=== PATIENT | male | born 1975 | race American Indian/Alaskan Native ===

== ENCOUNTER 2021-03-11 19:59 | Emergency (ER) | payer MEDICARE ==
--- NOTE | 2021-03-11 21:27 | Emergency Department Report ---
HPI - General Chief Complaint: Psych Time Seen by Provider: 03/11/21 21:14 - HPI HPI: 45-year-old -Portuguese male presents to the emergency department for a mental health evaluation. The patient says that he has a history of depression and schizophrenia. He says he is compliant with psychiatric medications but cannot remember the name of them and they are just given to him by people at his retirement. He complains of some nonspecific auditory and visual hallucinations. He says that they are random voices that he hears but he cannot make out what they are saying. He also complains of nonspecific suicidal ideations anything going on since this morning. He has a past medical history of hypertension. ED Past Medical Hx - Past Medical History Previous Medical History?: No - Surgical History Past Surgical History?: No - Social History Smoking Status: Current Every Day Smoker - Medications Home Medications: Home Medications Medication Instructions Recorded Confirmed Last Taken Type No Known Home Medications [No 03/11/21 03/11/21 Unknown History Reported Home Medications] ED Review of Systems ROS: Stated complaint: MH Other details as noted in HPI Comment: All other systems reviewed and negative Constitutional: denies: chills, fever Eyes: denies: eye pain, vision change ENT: denies: ear pain, throat pain Respiratory: denies: cough, shortness of breath Cardiovascular: denies: chest pain, palpitations Gastrointestinal: denies: abdominal pain, vomiting Genitourinary: denies: dysuria, discharge Musculoskeletal: denies: back pain, arthralgia Neurological: denies: headache, weakness Psychiatric: auditory hallucinations, visual hallucinations, suicidal thoughts. denies: homicidal thoughts Physical Exam - Physical Exam Vital Signs: Vital Signs 03/11/21 03/11/21 20:59 21:17 Temperature 98.5 F 98.7 F Pulse Rate 88 88 Respiratory 17 18 Rate Blood Pressure 114/63 120/88 [Right] O2 Sat by Pulse 99 97 Oximetry Physical Exam: GENERAL: The patient is well-developed well-nourished. HENT: Normocephalic. Atraumatic. Patient has moist mucous membranes. EYES: Extraocular motions are intact. NECK: Supple. Trachea is midline. CHEST/LUNGS: Clear to auscultation. There is no respiratory distress noted. HEART/CARDIOVASCULAR: Regular. There is no tachycardia. There is no murmur. ABDOMEN: Abdomen is soft, nontender. Patient has normal bowel sounds. SKIN: Skin is warm and dry. NEURO: The patient is awake, alert, cooperative. The patient has no focal neurologic deficits. Normal speech. MUSCULOSKELETAL: There is no tenderness or deformity. ED Course Vital Signs 03/11/21 03/11/21 20:59 21:17 Temperature 98.5 F 98.7 F Pulse Rate 88 88 Respiratory 17 18 Rate Blood Pressure 114/63 120/88 [Right] O2 Sat by Pulse 99 97 Oximetry ED Medical Decision Making - Lab Data Result diagrams: 03/11/21 21:31 03/11/21 21:31 Lab Results 03/11/21 03/11/21 03/11/21 Range/Units 21:31 21:31 21:31 WBC 5.0 (4.5-11.0) K/mm3 RBC 4.67 (3.65-5.03) M/mm3 Hgb 14.1 (11.8-15.2) gm/dl Hct 42.5 (35.5-45.6) % MCV 91 (84-94) fl MCH 30 (28-32) pg MCHC 33 (32-34) % RDW 15.3 H (13.2-15.2) % Plt Count 200 (140-440) K/mm3 Lymph % (Auto) 23.9 (13.4-35.0) % [place] % (Auto) 9.9 H (0.0-7.3) % Eos % (Auto) 2.0 (0.0-4.3) % Baso % (Auto) 0.6 (0.0-1.8) % Lymph # (Auto) 1.2 (1.2-5.4) K/mm3 [place] # (Auto) 0.5 (0.0-0.8) K/mm3 Eos # (Auto) 0.1 (0.0-0.4) K/mm3 Baso # (Auto) 0.0 (0.0-0.1) K/mm3 Seg Neutrophils % 63.6 (40.0-70.0) % Seg Neutrophils # 3.2 (1.8-7.7) K/mm3 Sodium 142 (137-145) mmol/L Potassium 3.9 (3.6-5.0) mmol/L Chloride 105.9 (98-107) mmol/L Carbon Dioxide 24 (22-30) mmol/L Anion Gap 16 mmol/L BUN 15 (9-20) mg/dL Creatinine 1.3 (0.8-1.3) mg/dL Estimated GFR > 60 ml/min BUN/Creatinine Ratio 12 % Glucose 84 (75-100) mg/dL Calcium 8.8 (8.4-10.2) mg/dL Plasma/Serum Alcohol 0.05 (0-0.07) % - Medical Decision Making This patient presents for a mental health evaluation. Initially had some nonspecific auditory and visual hallucinations and nonspecific suicidal ideations without a plan. However, even with the nonspecific suicidal ideations the patient has been placed on ED hold and a 1013. He was then seen by the psychiatric deputy assessor and told her essentially that he has command auditory hallucinations causing both suicidal and homicidal ideations. The 1013 appears justified and the psychiatric deputy assessor agrees with the plan for inpatient stabilization. Labs have thus far been mostly unremarkable including CBC, metabolic panel and blood alcohol level. The blood alcohol level was not 0, but is still within the legal limit and the patient does not appear acutely intoxicated. He does not appear to be exhibiting any signs of any type of alcohol withdrawal. We are s till waiting for a urine sample for urinalysis and UDS. If the patient has a urinary tract infection then antibiotics will need to be added. Vital signs have been reassuring throughout his ED course thus far. We will continue to monitor this patient during his ED course. This patient is medically cleared for psychiatric placement. Critical Care Time: No Critical care attestation.: If time is entered above; I have spent that time in minutes in the direct care of this critically ill patient, excluding procedure time. ED Disposition Clinical Impression: Suicidal ideations, History of command hallucinations, Schizophrenia Disposition: [address] [place] [address] Is pt being admited?: No Condition: Stable Time of Disposition: 01:43
[2021-03-11 21:46] LABS: Basophils % (Auto) 0.6 % (0.0-1.8); Eosinophils # (Auto) 0.1 K/mm3 (0.0-0.4); Hematocrit 42.5 % (35.5-45.6); Hemoglobin 14.1 gm/dl (11.8-15.2); Lymphocytes # (Auto) 1.2 K/mm3 (1.2-5.4); Lymphocytes % (Auto) 23.9 % (13.4-35.0); Mean Corpuscular HGB Conc 33 % (32-34); Mean Corpuscular Volume 91 fl (84-94); Monocytes # (Auto) 0.5 K/mm3 (0.0-0.8); Monocytes % (Auto) 9.9 % (0.0-7.3); Platelet Count 200 K/mm3 (140-440); Red Blood Count 4.67 M/mm3 (3.65-5.03); Red Cell Distribution Width 15.3 % (13.2-15.2)
[2021-03-11 22:05] LABS: BUN/Creatinine Ratio 12; Blood Urea Nitrogen 15 mg/dL (9-20); Calcium 8.8 mg/dL (8.4-10.2); Hemolysis Index 6
--- NOTE | 2021-03-12 10:43 | Consultation ---
History of Present Illness - Reason for Consult Consult date: 03/12/21 Reason for consult: hallucinating - History of Present Psychiatric Illness The patient is a 45y/o male patient who states he has been hearing voices and seeing things. When asking the patient what were the voices saying, he says "I can't tell or make out." He says he sees "lights and stuff." The patient says he's been off his meds for "some days." He endorses suicidal thoughts and says he got like this being off his meds. The patient is speaking in an almost inaudible tone. He says he has a history of schizophrenia and bipolar PAST PSYCHIATRIC HISTORY: Diagnoses: Bipolar, schizophrenia Suicide attempts or Self-harm behavior: Denies Prior psychiatric hospitalizations: Yes Substance Abuse history: Denies Previous psychiatric medications tried: cogentin, risperdal Outpatient treatment: Yes PAST MEDICAL HISTORY: None reported or document Family Psychiatric History: None reported or documented SOCIAL HISTORY Marital Status: Single Living Arrangements: Lives with someone Employment Status: Disabled Access to guns/weapons: Denies Education: History of Abuse: Denies Legal History: Denies REVIEW OF SYSTEMS Constitutional: Negative for weight loss ENT: Negative for stridor Respiratory: Negative for cough or hemoptysis All other systems reviewed and are negative MENTAL STATUS EXAMINATION General Appearance and Behavior: Age appropriate, good hygiene, wearing appropriate clothes. calm, cooperative Cooperation: cooperative Psychomotor Behavior: Psychomotor normal Mood: depressed Affect and affective range: congruent with stated mood Thought Process: illogical Thought Content: hallucinations, depression Speech: low, barely audible Suicidal Ideation: yes Homicidal Ideation: Denies Hallucinations: Auditory Delusions: none elicited Impulse Control: impaired Insight and Judgment: Limited Memory: limited Attention: Attentive Orientation: alert and oriented Assessment and Plan (1) Schizophrenia Treatment Plan 1013 Risperidone 1mg po BID Cogentin 0.5mg po BID Prozac 20mg po daily Sitter: per primary Medical: per primary Disposition: Recommend acute psychiatric inpatient treatment Will follow. Thanks for this consult. Case staffed with Dr. Chan Medications and Allergies Allergies Allergy/AdvReac Type Severity Reaction Status Date / Time No Known Allergies Allergy Unverified 03/11/21 21:15 Home Medications Medication Instructions Recorded Confirmed Last Taken Type No Known Home Medications [No 03/11/21 03/11/21 Unknown History Reported Home Medications] Mental Status Exam - Vital signs Last Vital Signs Temp 97.9 F 03/12/21 08:24 Pulse 73 03/12/21 08:24 Resp 20 03/12/21 08:24 BP 131/52 03/12/21 08:24 Pulse Ox 98 03/12/21 08:24 Results Result Diagrams: 03/11/21 21:31 03/11/21 21:31 Abnormal lab results 03/11/21 Range/Units 21:31 RDW 15.3 H (13.2-15.2) % [place] % (Auto) 9.9 H (0.0-7.3) % All other labs normal.
[2021-03-12] MEDS ORDERED: BENZTROPINE 0.5 MG TAB PO SCH (11:00)
[2021-03-12] MEDS ORDERED: FLUoxetine 20 MG CAP PO SCH (11:00)
[2021-03-12] MEDS ORDERED: risperiDONE 1 MG TAB PO SCH (11:00)
[2021-03-12 16:49] LABS: Bilirubin,Urine NEG (Negative); Blood,Urine NEG (Negative); Color,Urine Yellow (Yellow); Mucus,Urine FEW /HPF; Protein,Urine <15 mg/dL mg/dL (Negative); Urobilinogen,Urine < 2.0 mg/dL (<2.0); WBC,Urine < 1.0 /HPF (0.0-6.0)
[2021-03-12 16:58] LABS: Amphetamine Screen,Urine Negative; Benzodiazepines Screen,Urine Negative; Cannabinoid Screen,Urine Negative; Cocaine Screen,Urine Negative; Methadone Screen,Urine Negative; Opiate Screen,Urine Negative
[2021-03-12 19:53] VITALS: BP 123/84
== END 2021-03-12 21:00 ==
LOC: EEVIPCON 19:59 → ED 19:59
DX: F20.9 Schizophrenia, unspecified (principal); R45.851 Suicidal ideations; Z20.822 Contact with and (suspected) exposure to COVID-19; F17.200 Nicotine dependence, unspecified, uncomplicated
CPT/HCPCS: 36415; 80048; 80307; 81001; 85025; 99285; U0003; 80320; G0480